=== PATIENT | female | born 1950 | race Caucasian/White ===

== ENCOUNTER 2017-04-13 09:30 | Emergency (ER) | payer OTHER ==
[~2017-04-13] VITALS: Ht 144.8 cm; Wt 59.0 kg
[2017-04-13] MEDS ORDERED: MOBIC15 MG PO (10:25)
== END 2017-04-13 11:07 | disposition home or self-care (01) ==
LOC: ER 09:30
DX: S93.401A Sprain of unspecified ligament of right ankle, initial encounter (principal); X50.3XXA Overexertion from repetitive movements, initial encounter; Y93.89 Activity, other specified; Y92.89 Other specified places as the place of occurrence of the external cause; Y99.8 Other external cause status